=== PATIENT | male | born 1955 | race Two or more races ===

== ENCOUNTER 2018-11-12 13:39 | Inpatient (IN) | payer MEDICAID, OTHER ==
[~2018-11-12] VITALS: Ht 170.2 cm; Wt 79.8 kg
[2018-11-12 15:44] LABS: AMPHET/METH SCREEN,URINE NEGATIVE (NEGATIVE); BARBITURATE SCREEN, URINE NEGATIVE (NEGATIVE); BENZODIAZEPINES SCREEN,URINE NEGATIVE (NEGATIVE); CANNABINOID SCREEN,URINE POSITIVE (NEGATIVE); COCAINE SCREEN,URINE NEGATIVE (NEGATIVE); METHADONE SCREEN, URINE NEGATIVE (NEGATIVE); OPIATE SCREEN,URINE NEGATIVE (NEGATIVE)
[2018-11-12 15:47] LABS: PHENCYCLIDINE SCREEN,URINE NEGATIVE (NEGATIVE)
[2018-11-12] MEDS ORDERED: ZOLPIDEM TARTRATE 10 MG TABLET PO PRN (16:00)
[2018-11-12] MEDS ORDERED: HALOPERIDOL LACTATE 5 MG/ML VIAL ONE (16:10)
[2018-11-12] MEDS ORDERED: LORazepam 2 MG/ML VIAL ONE (16:11)
[2018-11-12] MEDS ORDERED: DiphenhydrAMINE HCL 50 MG/ML VIAL ONE (16:12)
[2018-11-12] MEDS ORDERED: ACETAMINOPHEN 325 MG TABLET PO PRN (16:15)
[2018-11-12] MEDS ORDERED: DiphenhydrAMINE HCL 50 MG/ML VIAL IM ONE (16:15)
[2018-11-12] MEDS ORDERED: IBUPROFEN 400 MG TABLET PO PRN (16:15)
[2018-11-12] MEDS ORDERED: HALOPERIDOL LACTATE 5 MG/ML VIAL IM ONE (16:15)
[2018-11-12] MEDS ORDERED: LORazepam 2 MG/ML VIAL IM ONE (16:15)
[2018-11-12 17:57] LABS: EOSINOPHILS % (AUTO) 5.3 % (1.0-6.0); HEMOGLOBIN 13.7 g/dL (13.5-17.5); LYMPHOCYTES # (AUTO) 1.5 K/uL (1.0-4.8); LYMPHOCYTES % (AUTO) 33.8 % (22.0-44.0); MEAN CORPUSCULAR HEMOGLOBIN 31.8 pg (26.0-34.0); MEAN CORPUSCULAR HGB CONC 33.3 G/dL (31.0-37.0); MEAN CORPUSCULAR VOLUME 96 fL (80-100); MONOCYTES # (AUTO) 0.3 K/uL (0.1-1.0); MONOCYTES % (AUTO) 6.7 % (2.0-9.0); NEUTROPHILS # (AUTO) 2.3 K/uL (1.8-7.7); NEUTROPHILS % (AUTO) 52.2 % (40.0-70.0); PLATELET COUNT (AUTO) 203 K/uL (150-450); RED BLOOD CELL COUNT(AUTO) 4.29 MIL/uL (4.50-5.90); RED CELL DISTRIBUTION WIDTH 14.5 % (11.5-14.5)
[2018-11-12 19:08] LABS: ALANINE AMINOTRANSFERASE 19 U/L (12-78); ALBUMIN 3.2 g/dL (3.4-5.0); ALKALINE PHOSPHATASE 57 U/L (46-116); ANION GAP 10 mmol/L (8-16); ASPARTATE AMINOTRANSFERASE 23 U/L (15-37); BILIRUBIN,TOTAL 0.2 mg/dL (0.1-1.0); CALCIUM, TOTAL 8.9 mg/dL (8.8-10.5); CARBON DIOXIDE 25 mmol/L (22-29); CHLORIDE 107 mmol/L (98-107); CREATININE 1.03 mg/dL (0.60-1.30); GLOMERULAR FILTR. RATE CALC > 60 mL/min (>60); GLUCOSE,RANDOM 90 mg/dL (70-110); POTASSIUM 3.7 mmol/L (3.5-5.1); SODIUM SERUM 142 mmol/L (136-145); TOTAL PROTEIN, SERUM 6.5 g/dL (6.4-8.2)
[2018-11-12 19:20] LABS: UREA NITROGEN, BLOOD 16 mg/dL (7-18)
[2018-11-13 00:34] VITALS: BP 112/70
[2018-11-13] MEDS: SERTRALINE HCL 50 MG TABLET PO SCH (09:45)
[2018-11-14 00:05] VITALS: BP 132/76
[2018-11-14 06:41] LABS: EOSINOPHILS % (AUTO) 5.5 % (1.0-6.0); HEMATOCRIT 42.3 % (41-53); HEMOGLOBIN 14.3 g/dL (13.5-17.5); LYMPHOCYTES # (AUTO) 1.7 K/uL (1.0-4.8); LYMPHOCYTES % (AUTO) 38.9 % (22.0-44.0); MEAN CORPUSCULAR HEMOGLOBIN 32.4 pg (26.0-34.0); MEAN CORPUSCULAR HGB CONC 33.7 G/dL (31.0-37.0); MEAN CORPUSCULAR VOLUME 96 fL (80-100); MONOCYTES # (AUTO) 0.3 K/uL (0.1-1.0); MONOCYTES % (AUTO) 6.9 % (2.0-9.0); NEUTROPHILS # (AUTO) 2.1 K/uL (1.8-7.7); NEUTROPHILS % (AUTO) 47.7 % (40.0-70.0); PLATELET COUNT (AUTO) 192 K/uL (150-450); RED CELL DISTRIBUTION WIDTH 14.4 % (11.5-14.5)
[2018-11-14 07:33] LABS: ALANINE AMINOTRANSFERASE 26 U/L (12-78); ALBUMIN 3.4 g/dL (3.4-5.0); ALKALINE PHOSPHATASE 61 U/L (46-116); ANION GAP 6 mmol/L (8-16); ASPARTATE AMINOTRANSFERASE 38 U/L (15-37); BILIRUBIN,TOTAL 0.4 mg/dL (0.1-1.0); CALCIUM, TOTAL 9.4 mg/dL (8.8-10.5); CARBON DIOXIDE 27 mmol/L (22-29); CHLORIDE 109 mmol/L (98-107); CHOLESTEROL 172 mg/dL (131-200); CREATININE 0.95 mg/dL (0.60-1.30); GLOMERULAR FILTR. RATE CALC > 60 mL/min (>60); GLUCOSE,RANDOM 94 mg/dL (70-110); HDL CHOLESTEROL 58 mg/dL (40-60); LDL CHOL (CALC.) 97 mg/dL (0-130); POTASSIUM 4.3 mmol/L (3.5-5.1); SODIUM SERUM 142 mmol/L (136-145); THYROID STIMULATING HORMONE 3.45 uIU/mL (0.36-3.74); TOTAL PROTEIN, SERUM 6.3 g/dL (6.4-8.2); TRIGLYCERIDES 86 mg/dL (15-150); UREA NITROGEN, BLOOD 23 mg/dL (7-18)
[2018-11-14 07:57] LABS: HEMOGLOBIN A1C 5.2 % (4.5-6.2)
[2018-11-14 08:02] VITALS: BP 127/58
[2018-11-14] MEDS: SERTRALINE HCL 50 MG TABLET PO SCH (09:58)
[2018-11-14 16:01] VITALS: BP 125/65
[2018-11-14] MEDS: HALOPERIDOL 5 MG TABLET PO PRN (18:52)
[2018-11-14] MEDS: LORazepam 2 MG TABLET PO PRN (18:52)
[2018-11-15 06:52] VITALS: BP 129/86
[2018-11-15 06:53] VITALS: BP 129/86
[2018-11-15 08:00] VITALS: BP 122/78
[2018-11-15 08:15] VITALS: BP 122/78
[2018-11-15] MEDS: SERTRALINE HCL 50 MG TABLET PO SCH (09:03)
[2018-11-15 16:00] VITALS: BP 134/81
[2018-11-15] MEDS: HALOPERIDOL 5 MG TABLET PO PRN (16:38)
[2018-11-15] MEDS: LORazepam 2 MG TABLET PO PRN (16:38)
[2018-11-15 17:01] VITALS: BP 134/81
[2018-11-16 05:57] VITALS: BP 140/72
[2018-11-16 08:00] VITALS: BP 127/72
[2018-11-16 08:18] VITALS: BP 127/72
[2018-11-16] MEDS: SERTRALINE HCL 50 MG TABLET PO SCH (09:22)
[2018-11-16 16:00] VITALS: BP 108/69
[2018-11-16] MEDS: LORazepam 2 MG TABLET PO PRN (17:58)
[2018-11-16] MEDS: HALOPERIDOL 5 MG TABLET PO PRN (17:58)
[2018-11-17 04:46] VITALS: BP 132/72
[2018-11-17 04:50] VITALS: BP 132/72
[2018-11-17 08:13] VITALS: BP 119/81
[2018-11-17] MEDS: SERTRALINE HCL 50 MG TABLET PO SCH (08:59)
[2018-11-17] MEDS ORDERED: SERT50TA12 PO (12:16)
== END 2018-11-17 14:00 | disposition home or self-care (01) | DRG 751 ==
LOC: EMS 13:40 → B3A 19:03
PROVIDERS: ADMIT Psychiatry & Neurology Psychiatry; ATTEND Psychiatry & Neurology Psychiatry
DX: F33.2 Major depressive disorder, recurrent severe without psychotic features (principal); R45.851 Suicidal ideations; F10.20 Alcohol dependence, uncomplicated; F12.10 Cannabis abuse, uncomplicated; D72.819 Decreased white blood cell count, unspecified
CPT/HCPCS: 83036; 84443; 93005; 99291; G0480; J1200; J1630; J2060